=== PATIENT | male | born 1975 ===

== ENCOUNTER 2017-01-26 15:50 | Emergency (ER) | payer OTHER ==
[2017-01-26 15:50] VITALS: BMI 31.1
[2017-01-26 15:55] VITALS: TEMP 98
--- NOTE | 2017-01-26 16:24 | C.PDOC ---
History Of Present Illness 41 y/o male presents to ED with complaints of midsternal chest pain since this morning. Patient describes pain as pressure and tightness to chest with associated shorntess of breath. He reports taking aspirin with improvement. Patient is speaking in full sentences and denies fever, cough, nausea, vomiting , congestion or any other complaints at this time. Time Seen by Provider: 01/26/17 15:57 Chief Complaint (Nursing): Chest Pain History Per: Patient History/Exam Limitations: no limitations Onset/Duration Of Symptoms: Hrs Current Symptoms Are (Timing): Still Present Quality: Pressure Associated Symptoms: denies: Nausea Past Medical History Reviewed: Historical Data, Nursing Documentation, Vital Signs Vital Signs: Last Vital Signs Temp 98.0 F 01/26/17 15:53 Pulse 54 L 01/26/17 17:34 Resp 16 01/26/17 17:34 BP 101/56 L 01/26/17 17:34 Pulse Ox 96 01/26/17 18:04 - Medical History PMH: No Chronic Diseases Surgical History: No Surg Hx Family History: States: [place] (father ), Hypertension - Social History Hx Tobacco Use: No Hx Alcohol Use: No Hx Substance Use: No - Immunization History Hx Tetanus Toxoid Vaccination: Yes Hx Influenza Vaccination: No Hx Pneumococcal Vaccination: No Review Of Systems Constitutional: Negative for: Fever, Chills Eyes: Negative for: Vision Change Cardiovascular: Positive for: Chest Pain. Negative for: Palpitations Respiratory: Negative for: Cough, Shortness of Breath Gastrointestinal: Negative for: Nausea, Vomiting, Abdominal Pain Musculoskeletal: Negative for: Neck Pain, Shoulder Pain Skin: Negative for: Rash Neurological: Negative for: Weakness, Numbness, Headache, Dizziness Physical Exam - Physical Exam Appears: Non-toxic, No Acute Distress Skin: Normal Color, Warm, Dry, No Rash Head: Atraumatic, Normacephalic Eye(s): bilateral: Normal Inspection, PERRL, EOMI Nose: Normal Oral Mucosa: Moist Neck: Normal ROM, Supple Chest: Symmetrical, Tenderness (Reproducible chest wall tenderness anterior midsternal ), No Subcutaneous Emphysema Cardiovascular: Rhythm Regular Respiratory: Normal Breath Sounds (clear to auscultation), No Rales, No Rhonchi , No Wheezing Gastrointestinal/Abdominal: Soft, No Tenderness, No Guarding, No Rebound Extremity: Normal ROM, No Tenderness, No Pedal Edema, Capillary Refill (<2 seconds), No Swelling Pulses: Left Radial: Normal Neurological/Psych: Oriented x3, Normal Speech (Speaking in full sentences), Normal Motor, Normal Sensation ED Course And Treatment - Laboratory Results Result Diagrams: 01/26/17 16:35 01/26/17 16:35 Lab Interpretation: No Acute Changes ECG: Interpreted By Me, Viewed By Me ECG Rhythm: Sinus Bradycardia ECG Interpretation: No Acute Changes O2 Sat by Pulse Oximetry: 96 (RA) Pulse Ox Interpretation: Normal Medical Decision Making Medical Decision Making: Impression: Chest pain Plan: * EKG * CXR * Labs Prior Visits: Notes and results from previous visits were reviewed. Progress Notes: Labs reviewed and unremarkable. EKG reviewed Sinus bradycardia at 56, no changes from 09/02/2016. CXR shows no acute cardiopulmonary disease. Based on negative findings on cardiac enzymes, no ischemic changes to EKG and no abnormal arrhythmia during ED observation, unlikely ACS. Patient has reproducible chest pain which resolved with ASA taken at home. Re-evaluation Time: 1712 Patient feels better. Patient is resting comfortably in no acute distress. Discussed results with patient and provide copy of labs and XRay reports. Patient expresses understanding. Counseling was provided regarding the diagnosis and prognosis. All questions answered and there is agreement with the plan to discharge home with instructions. Patient stable for discharge. Return if symptoms persist or worsen. Reassessment Condition: Re-examined, Improved Dispo: Discharge home. Patient was recommended to follow up with PCP or clinic in 1-2 days. Return to ED if symptoms worsen. Disposition Counseled Patient/Family Regarding: Studies Performed, Diagnosis, Need For Followup - Disposition Referrals: [facility] [Outside] [facility] [Outside] [facility] [employer] [facility] [Outside] Disposition: HOME/ ROUTINE Disposition Time: 17:30 Condition: GOOD Additional Instructions: Harrison radiografa de trax EKG y los laboratorios fueron normales Intenta trinity el colesterol [place] aspirina o ibuprofeno para cualquier dolor Realice un seguimiento con harrison mdico primario o clnica en 1 semana para maryam evaluacin adicional. Regrese al departamento de emergencia en cualquier momento si los sntomas persisten o empeoran. Instructions: Chest Wall Pain (ED) Forms: [employer] (Latvian) Print Language: ARMENIAN - POA Present On Arrival: None - Clinical Impression Clinical Impression: Musculoskeletal chest pain - PA / LEVEL VIAL INSPECTOR / Resident Statement MD/DO has reviewed & agrees with the documentation as recorded. - Scribe Statement The provider has reviewed the documentation as recorded by the Elisaibivette Goncalves All medical record entries made by the Christ were at my direction and personally dictated by me. I have reviewed the chart and agree that the record accurately reflects my personal performance of the history, physical exam, medical decision making, and the department course for this patient. I have also personally directed, reviewed, and agree with the discharge instructions and disposition.
--- NOTE | 2017-01-26 16:37 | RAD ---
HISTORY: chest pain COMPARISON: Chest x-ray performed 08/05/14 TECHNIQUE: Chest PA and lateral FINDINGS: Examination limited by habitus. LUNGS: No focal consolidation. Please note that chest x-ray has limited sensitivity for the detection of pulmonary masses. PLEURA: No significant pleural effusion identified. No definite pneumothorax . CARDIOVASCULAR: Heart size appears within normal limits. OSSEOUS STRUCTURES: No acute osseous abnormality identified. VISUALIZED UPPER ABDOMEN: Unremarkable. OTHER FINDINGS: None. IMPRESSION: No focal consolidation, significant pleural effusion, or definite pneumothorax identified.
[2017-01-26 16:39] LABS: BASO # 0.1 K/uL (0.0-0.2); BASO % 0.7 % (0.0-2.0); EOS # 0.5 K/uL (0.0-0.7); EOS % 6.4 % (0.0-4.0); HEMATOCRIT 43.7 % (35.0-51.0); LYMPH # 2.5 K/uL (1.0-4.3); LYMPH % 33.8 % (20.0-40.0); MEAN CELL VOLUME 81.7 fL (80.0-94.0); MEAN CORPUSCULAR HEMOGLOBIN 26.7 pg (27.0-31.0); MEAN CORPUSCULAR HGB CONC 32.7 g/dL (33.0-37.0); MEAN PLATELET VOLUME 8.6 fL (7.2-11.7); MONO # 0.7 K/uL (0.0-0.8); MONO % 8.9 % (0.0-10.0); RED CELL DISTRIBUTION WIDTH 12.9 % (11.5-14.5); WHITE BLOOD COUNT 7.4 K/uL (4.8-10.8)
[2017-01-26 16:44] LABS: RBC URINE < 1 /hpf (0-3); URINE BILIRUBIN NEGATIVE (NEGATIVE); URINE BLOOD NEGATIVE (NEGATIVE); URINE COLOR Yellow (YELLOW); URINE GLUCOSE (UA) NORMAL (Normal); URINE KETONE NEGATIVE (NEGATIVE); URINE LEUKOCYTE ESTERASE NEG Leu/uL (Negative); URINE PROTEIN NEGATIVE (NEGATIVE); URINE UROBILINOGEN NORMAL mg/dL (0.2-1.0); WBC URINE 1 /hpf (0-5)
[2017-01-26 16:50] LABS: ALB/GLOB RATIO 1.4 (1.0-2.1); ALKALINE PHOSPHATASE 76 U/L (38-126); ALT/SGPT 54 U/L (21-72); AST/SGOT 36 U/L (17-59); BILIRUBIN,TOTAL 0.5 mg/dL (0.2-1.3); BLOOD UREA NITROGEN 22 mg/dL (9-20); CALCIUM 8.4 mg/dl (8.6-10.4); CARBON DIOXIDE 31 mmol/L (22-30); CHLORIDE 102 mmol/L (98-107); CHOLESTEROL 176 mg/dL (0-199); GFR AFRICAN-AMERICAN > 60; GLUCOSE,RANDOM 100 mg/dL (75-110); POTASSIUM 4.5 mmol/L (3.6-5.2); SODIUM 138 mmol/L (132-148); TOTAL PROTEIN 7.3 g/dL (6.3-8.3)
[2017-01-26 17:35] VITALS: BP 101/56; PULSE 54; RESP 16
[2017-01-26 18:04] VITALS: O2SAT 96
--- NOTE | 2017-01-29 09:38 | CARD ---
APPROVED REPORT EKG Measurement Heart [id number] <Conclusion> Sinus bradycardia Low voltage QRS Incomplete right bundle branch block Borderline ECG
== END 2017-01-26 17:35 | disposition home or self-care (01) ==
LOC: C.ER 15:50
DX: R07.89 Other chest pain (principal)